=== PATIENT | male | born 1950 | race Caucasian/White ===

== ENCOUNTER → 2017-07-13 | Outpatient (CLI) | payer OTHER | END | disposition home or self-care (01) | LOC: PCVCCLINIC 13:40 | DX: I25.10 Atherosclerotic heart disease of native coronary artery without angina pectoris (principal); I10 Essential (primary) hypertension; E78.00 Pure hypercholesterolemia, unspecified; I77.9 Disorder of arteries and arterioles, unspecified; Z79.82 Long term (current) use of aspirin; Z79.899 Other long term (current) drug therapy | CPT/HCPCS: 80061; 93005; G0463 ==

== ENCOUNTER → 2017-08-24 | Outpatient (CLI) | payer MEDICARE, OTHER | END | disposition home or self-care (01) | LOC: PCVCIMAG 13:21 | DX: I25.10 Atherosclerotic heart disease of native coronary artery without angina pectoris (principal); I10 Essential (primary) hypertension; Z95.5 Presence of coronary angioplasty implant and graft | CPT/HCPCS: 80061; 93325; 93351 ==

== ENCOUNTER → 2018-03-22 | Outpatient (CLI) | payer MEDICARE, OTHER | END | disposition home or self-care (01) | LOC: PCVCCLINIC 14:07 | PROVIDERS: ATTEND Internal Medicine Cardiovascular Disease | DX: I25.10 Atherosclerotic heart disease of native coronary artery without angina pectoris (principal); I10 Essential (primary) hypertension; I34.1 Nonrheumatic mitral (valve) prolapse; I35.8 Other nonrheumatic aortic valve disorders; E78.00 Pure hypercholesterolemia, unspecified; Z79.82 Long term (current) use of aspirin; Z79.899 Other long term (current) drug therapy | CPT/HCPCS: 80061; 93005; G0463 ==

== ENCOUNTER → 2018-09-28 | Outpatient (CLI) | payer MEDICARE, OTHER ==
--- NOTE | 2018-09-29 17:57 | PCVCIMAG ---
APPROVED REPORT Study performed: 09/28/2018 12:53:45 EXAM: Comprehensive 2D, Doppler, and color-flow Echocardiogram Patient Location: Echo lab Room #: 2Status: routine BSA: 2.09 HR: 70 bpmBP: 146/82 mmHg Rhythm: NSR Other Information Study Quality: Adequate Risk Factors: Cardiac Risk Factors: HTN, Hyperlipidemia Indications Mitral Valve Prolapse CAD Hypertension/HDD 2D Dimensions IVSd: 10.18 (7-11mm)LVOT Diam: 23.84 (18-24mm) LVDd: 47.00 mm PWd: 7.97 (7-11mm)Ascending Ao: 37.42 (22-36mm) LVDs: 25.70 (25-40mm) Left Atrium: 42.87 (27-40mm) Aortic Root: 31.30 mm LV Single Plane 4CH: 56.29 % LV Single Plane 2CH: 57.88 % Biplane EF: 59.4 % Volumes Left Atrial Volume (Systole) Single Plane 4CH: 67.36 mLSingle Plane 2CH: 92.88 mL Biplane LA Volume: 82.00 mLLA ESV Index: 40.00 mL/m2 Aortic Valve AoV Peak Dante.: 1.46 m/s AO Peak Gr.: 8.56 mmHgLVOT Max P.73 mmHg LVOT Max V: 0.97 m/s [id number] Vmax: 2.94 cm2 Mitral Valve E/A Ratio: 1.3 MV Decel. Time: 150.63 ms MV E Max Dante.: 0.81 m/s MV A Dante.: 0.62 m/s IVRT: 69.20 ms TDI E/Lateral E': 10.13E/Medial E': 11.57 Medial E' Dante.: 0.07 m/s Lateral E' Dante.: 0.08 m/s Pulmonary Valve PV Peak Dante.: 0.82 m/sPV Peak Gr.: 2.70 mmHg Tricuspid Valve TR Peak Dante.: 2.60 m/s TR Peak Gr.: 27.03 mmHg TV Vmax: 0.62 m/sPA Pressure: 34.00 mmHg Left Ventricle The left ventricle is normal size. There is normal LV segmental wall motion. There is normal left ventricular wall thickness. Left ventricular systolic function is normal. The left ventricular ejection fraction is within the normal range. LVEF is 55-60%. The left ventricular diastolic function is normal. Right Ventricle The right ventricle is normal size. The right ventricular systolic function is normal. Atria Left atrium is mildly dilated. The right atrium size is normal. Aortic Valve Aortic valve is trileaflet. Mild aortic valve sclerosis. No aortic regurgitation is present. There is no aortic valvular stenosis. Mitral Valve The mitral valve is normal in structure. Mild to moderate mitral regurgitation with an eccentric jet. No evidence of mitral valve stenosis. Mild prolapse of the posterior mitral valve leaflet. Tricuspid Valve The tricuspid valve is normal in structure. Moderate tricuspid regurgitation with a PA pressure of 34 mmHg. Mild pulmonary hypertension. Pulmonic Valve The pulmonary valve is normal in structure. There is no pulmonic valvular regurgitation. Great Vessels The aortic root is normal in size. The ascending aorta is normal in size. Aortic arch is normal in caliber. IVC is normal in size and collapses >50% with inspiration. Pericardium There is no pericardial effusion. There is no pleural effusion. <Conclusion> The left ventricle is normal size. LVEF is 55-60%. The left ventricular diastolic function is normal. Left atrium is mildly dilated. The right atrium size is normal. Aortic valve is trileaflet. Mild aortic valve sclerosis. There is no aortic valvular stenosis. Mild to moderate mitral regurgitation with an eccentric jet. Moderate tricuspid regurgitation with a PA pressure of 34 mmHg. Mild pulmonary hypertension. The aortic root is normal in size. There is no pericardial effusion.
== END | disposition home or self-care (01) ==
LOC: PCVCIMAG 12:42
PROVIDERS: ATTEND Internal Medicine Cardiovascular Disease
DX: I25.10 Atherosclerotic heart disease of native coronary artery without angina pectoris (principal); I10 Essential (primary) hypertension; I08.3 Combined rheumatic disorders of mitral, aortic and tricuspid valves; I27.20 Pulmonary hypertension, unspecified; E78.00 Pure hypercholesterolemia, unspecified; Z79.82 Long term (current) use of aspirin
CPT/HCPCS: 36415; 80061; 93005; 93306; G0463

== ENCOUNTER → 2019-03-13 | Outpatient (CLI) | payer MEDICARE, OTHER ==
--- NOTE | 2019-03-13 17:33 | PCVCIMAG ---
APPROVED REPORT Study performed: 03/13/2019 15:20:07 Exam: Stress Echocardiogram Indication: CAD s/p PCI, mitral regurgitation and mitral prolapse, htn, hlp Patient Location: Echo lab Stress Nurse: Adeline Gomez RN Status: routine Ht: 5 ft 8 in HR: 80 bpm BP: 146/94 mmHg Rhythm: NSR Procedure The patient underwent an Exercise Stress Test using the Brian Protocol. Blood pressure, heart rate, and EKG were monitored. An Echocardiogram was performed by crime lab technician in four stages in quad fashion. At peak stress, four selected images were obtained and placed side by side with resting images for comparison. Stress Test Details Stress Test: Exercise stress testing was performed using a Brian protocol. HR Resting HR: 80 bpmMax Heart Rate (APMHR): 153 bpm Max HR Achieved: 133 bpmTarget HR (85% APMHR): 130 bpm % of APMHR: 86 Recovery HR: 88 bpm HR response to stress: Normal HR response to stress BP Resting BP: 146/94 mmHg Max BP: 180/86 mmHg Recovery BP: 144/82 mmHg BP response to stress: Normal blood pressure response to stress. ECG Resting ECG: Sinus Rhythm Stress ECG: Sinus Rhythm ST Change: Normal Arrhythmia: PVCs Recovery ECG: Sinus Rhythm Recovery ST Change: Normal Recovery Arrhythmia: None Clinical Reason for Termination: Maximal effort, leg discomfort Stress Symptoms: Dyspnea, leg fatigue Exercise duration: 5 min 20 sec Highest Stage Achieved: Stage 2: 2.5 mph at 12% grade. Exercise capacity: 7 METs Overall Exercise Capacity for Age: Average Scale: Sedentary Angina Score: None Pre-Stress Echo The resting Echocardiogram showed normal left ventricular contractility with an estimated Ejection Fraction of about >55%. The resting echocardiogram demonstrated normal wall motion in all wall segments. Post-Stress Echo The stress Echocardiogram showed normal left ventricular contractility with an estimated Ejection Fraction of about 65%. Compared to rest, there were no stress-induced wall motion abnormalities. Clinical No clinical or ECG evidence for ischemia. Conclusion Clinical Response: Non-ischemic Exercise Capacity: Average Stress ECG Response: Non-ischemic Stress Echo Images: Non-ischemic The left ventricle is normal in size and mild LVH in both the rest and stress images. Mild mitral valve prolapse with eccentric moderate mitral regurgitation, no stenosis. Normal aortic and pulmonic valves. Mild tricuspid regurgitation with PAP of 36 mmHg. Other Information Study Quality: Adequate <Conclusion> The left ventricle is normal in size and mild LVH in both the rest and stress images. Mild mitral valve prolapse with eccentric moderate mitral regurgitation, no stenosis. Normal aortic and pulmonic valves. Mild tricuspid regurgitation with PAP of 36 mmHg.
== END | disposition home or self-care (01) ==
LOC: PCVCIMAG 15:16
PROVIDERS: ATTEND Internal Medicine Cardiovascular Disease
DX: I08.1 Rheumatic disorders of both mitral and tricuspid valves (principal); I25.10 Atherosclerotic heart disease of native coronary artery without angina pectoris; I48.91 Unspecified atrial fibrillation; I10 Essential (primary) hypertension; E78.00 Pure hypercholesterolemia, unspecified
CPT/HCPCS: 36415; 80061; 93325; 93351